=== PATIENT | male | born 2000 | race Caucasian/White ===

== ENCOUNTER 2020-04-26 13:22 | Emergency (ER) | payer BC, OTHER ==
[2020-04-27 13:05] LABS: SARS-CoV-2 MS2 Positive; SARS-CoV-2 N Gene Positive; SARS-CoV-2 S Gene Positive; SARS-CoV-2 orf1ab Positive
== END 2020-04-26 13:45 | disposition home or self-care (01) ==
LOC: ERS 13:22
DX: U07.1 COVID-19 (principal); B30.9 Viral conjunctivitis, unspecified; R05 Cough; R09.81 Nasal congestion; R50.9 Fever, unspecified; R52 Pain, unspecified
CPT/HCPCS: 87635; 99283; U0003